=== PATIENT | male | born 1990 | race Caucasian/White ===

== ENCOUNTER 2021-12-28 07:10 | Emergency (ER) | payer BC ==
[~2021-12-28] VITALS: Ht 177.8 cm; Wt 83.0 kg
[2021-12-28 07:23] VITALS: BP 119/78
[2021-12-28] MEDS ORDERED: KETOROLAC 60MG/2ML VIAL IM ONE (08:15)
[2021-12-28] MEDS ORDERED: IBUP-2029 MT (09:37)
[2021-12-28] MEDS ORDERED: CYCL10TA21 MT (09:37)
== END 2021-12-28 11:25 | disposition home or self-care (01) ==
LOC: ER 07:10
DX: S30.0XXA Contusion of lower back and pelvis, initial encounter (principal); V49.49XA Driver injured in collision with other motor vehicles in traffic accident, initial encounter; Y93.89 Activity, other specified; Y92.89 Other specified places as the place of occurrence of the external cause; Y99.8 Other external cause status
CPT/HCPCS: 72131; 96372; 99284; J1885